=== PATIENT | male | born 1990 | race Caucasian/White ===

== ENCOUNTER 2024-08-01 06:15 | Day surgery (SDC) | payer OTHER ==
[2024-08-01] MEDS ORDERED: LIDOCAINE 1% (10MG/ML) FOR IV START INTRADERMA PRN (06:43)
[2024-08-01] MEDS ORDERED: LACTATED RINGERS 1,000 ML IV SCH (06:43)
[2024-08-01 06:51] VITALS: RESP 16; TEMP 98.5
[2024-08-01] MEDS: SODIUM CHLORIDE 0.9% 1,000 ML IV ONE (06:54)
[2024-08-01] MEDS ORDERED: LIDOCAINE 1% INJ 10MG/ML (20 ML MDV) ONE (07:27)
[2024-08-01] MEDS ORDERED: MIDAZOLAM 2 MG/2 ML VIAL ONE (07:27)
[2024-08-01] MEDS ORDERED: fentaNYL (PF) 50 MCG/ML 2 ML AMP ONE (07:27)
[2024-08-01] MEDS ORDERED: PROPOFOL 10 MG/ML 20 ML VIAL IV ONE (07:27)
[2024-08-01 08:07] VITALS: BP 108/73; PULSE 73
--- NOTE | 2024-08-01 08:22 | P.PCN ---
Date of Procedure: 08/01/24 Procedure(s) Performed: Brief history: Patient is a pleasant 34-year-old white male scheduled for an elective upper endoscopy as well as colonoscopy as a part of evaluation of intermittent episodes of nausea vomiting and alternating diarrhea and constipation for the last 2 years duration. Weight loss of 20 pounds. Procedure performed: Esophagogastroduodenoscopy with band Colonoscopy with biopsy Preoperative diagnosis: Intermittent episodes of nausea vomiting Change in bowel habits Anesthesia: MAC Procedure: After informed consent was obtained from the patient was brought into the endoscopy unit and IV sedation was administered by anesthesia under continuous monitoring. Initially upper endoscopy was done. The Olympus GF 160 video endoscope was inserted inserted into the mouth and esophagus intubated without any difficulty and was gradually advanced into the stomach and duodenum and carefully examined. The bulb and second part of the duodenum appeared normal. Biopsies were done from the duodenum rule out celiac disease. The scope was then withdrawn into the stomach adequately insufflated with air and upon careful examination the antrum mottling of the mucosa and biopsies were done from this area. Mucosa of the d body, cardia and fundus appeared normal. The scope was then withdrawn into the esophagus. Hiatal hernia noted. The GE junction was located at 40 cm to the incisors. There was a 3 mm tongue of Lechuga's appearing mucosa proximal to the GE junction which was biopsied. There was no erythema erosions or ulcerations. Rest of the esophagus appeared normal. Patient tolerated the procedure well. At this time the patient continued to remain sedation. Initial digital rectal examination was normal. Olympus CF 160 video colonoscope was then inserted into the rectum and gradually advanced to the cecum without any difficulty. Careful examination was performed as the scope was gradually being withdrawn. The prep was excellent. Terminal ileum was intubated and 20 cm visualized and appeared normal. Biopsies were done in the terminal ileum. The cecum, ascending colon, transverse colon, descending colon, sigmoid colon and rectum appeared normal. Biopsies were done from the ascending and descending colon to rule out microscopic/collagenous colitis. Retroflexion was performed in the rectum and no lesions were noted. Patient tolerated the procedure well. Impression: 1. Upper endoscopy revealed mild antral gastritis, small hiatal hernia and short segment Lechuga's esophagus 2. Colonoscopy within normal limits with no evidence of colitis or colorectal neoplasia. Normal-appearing terminal ileum. Recommendations: Findings of this examination were discussed with the patient as well as his family. He was advised to follow-up with the biopsy results. Follow-up in the office in 2 to 3 weeks.
== END 2024-08-01 08:38 | disposition home or self-care (01) ==
LOC: ORWHC2ENDO 06:15
PROVIDERS: ATTEND Internal Medicine Gastroenterology
DX: K29.50 Unspecified chronic gastritis without bleeding (principal); K21.00 Gastro-esophageal reflux disease with esophagitis, without bleeding; K44.9 Diaphragmatic hernia without obstruction or gangrene; E07.9 Disorder of thyroid, unspecified; Z87.891 Personal history of nicotine dependence; D68.00 Von Willebrand disease, unspecified; Z88.9 Allergy status to unspecified drugs, medicaments and biological substances; Z88.8 Allergy status to other drugs, medicaments and biological substances; Z79.899 Other long term (current) drug therapy
CPT/HCPCS: 45380; 43239; J2250; J2003; J3010; J2704; 88305